=== PATIENT | female | born 1970 | race Caucasian/White ===

== ENCOUNTER 2019-06-19 14:59 | Emergency (ER) | payer OTHER ==
--- NOTE | 2019-06-19 15:10 | PDOC ---
Rapid Medical Evaluation Time Seen by Provider: 06/19/19 15:03 Medical Evaluation: Allergies Allergy/AdvReac Type Severity Reaction Status Date / Time No Known Allergies Allergy Verified 02/15/14 09:31
[2019-06-19 15:37] VITALS: TEMP 98.1; BMI 31.9
[2019-06-19] MEDS ORDERED: SODIUM CHLORIDE 500 ML IV STA (16:06)
[2019-06-19] MEDS ORDERED: METOCLOPRAMIDE HCL INJECTION 10 MG/2 ML VIAL IVPUSH ONE (16:06)
[2019-06-19] MEDS ORDERED: ONDANSETRON 4 MG/2 ML VIAL IVPUSH ONE (16:06)
[2019-06-19] MEDS ORDERED: METOCLOPRAMIDE HCL INJECTION 10 MG/2 ML VIAL ONE (16:19)
[2019-06-19] MEDS ORDERED: ONDANSETRON 4 MG/2 ML VIAL ONE (16:20)
--- NOTE | 2019-06-19 16:24 | PDOC ---
History of Present Illness - General Chief Complaint: Headache Stated Complaint: Weakness Time Seen by Provider: 06/19/19 15:03 History Source: Patient - History of Present Illness Initial Comments: 06/19/19 16:23 48 yo F PMH of hyperlipidemia presents to ED with sudden onset headache x 1 day. pt states she was at work yesterday when she had a sudden frontal headache 10/10 pain. pt never had similar symptoms. shortly prior to onset, pt states she felt very hot and weak and had to sit down. pt states that the pain does not radiate anywhere. pt states that at the moment the pain is 7/10 b/c she took 2 tylenol. pt denies n/v.denies cp, sob. pt states she chronically has LLE swelling. 06/19/19 16:40 Past History - Past Medical History Allergies/Adverse Reactions: Allergies Allergy/AdvReac Type Severity Reaction Status Date / Time No Known Allergies Allergy Verified 02/15/14 09:31 Home Medications: Ambulatory Orders NK [No Known Home Medication] 06/19/19 COPD: No - Psycho Social/Smoking Cessation Hx Smoking History: Never smoked Number of Cigarettes Smoked Daily: 0 Hx Alcohol Use: No Drug/Substance Use Hx: No Review of Systems - Review of Systems Constitutional: No: Chills, Fever *Physical Exam - Vital Signs Last Vital Signs Temp Pulse Resp BP Pulse Ox 98.1 F 99 H 20 124/77 98 06/19/19 15:15 06/19/19 15:15 06/19/19 15:15 06/19/19 15:15 06/19/19 15:15 ED Treatment Course - LABORATORY CBC & Chemistry Diagram: 06/19/19 16:20 06/19/19 16:20 Medical Decision Making - Medical Decision Making 06/19/19 17:25 48 yo F presenting with headache and weakness x 1 day r/o SAH vs migraine vs tension headache -CBC, CMP-- reviewed -preg test neg -CT head -IV tylenol , zofran , ivf 06/19/19 19:06 CT head reviewed, neg -CTA head w/ contrast -IVF
[2019-06-19 16:34] LABS: BASO % 0.9 % (0-2.0); EOS % 4.1 % (0-4.5); HEMOGLOBIN 12.8 GM/dL (10.7-15.3); LYMPH % 16.8 % (8-40); MCH 24.1 pg (25.7-33.7); MCHC 32.7 g/dl (32.0-36.0); MEAN CELL VOLUME 73.8 fl (80-96); MEAN PLT VOLUME 9.5 fl (7.5-11.1); MONO % 5.8 % (3.8-10.2); NEUT % 72.4 % (42.8-82.8); PLATELET COUNT 230 K/MM3 (134-434); RBC 5.29 M/mm3 (3.60-5.2); RDW 15.7 % (11.6-15.6); WHITE BLOOD COUNT 13.2 K/mm3 (4.0-10.0)
[2019-06-19 17:07] LABS: ALBUMIN 3.6 g/dl (3.4-5.0); BILIRUBIN,TOTAL 0.2 mg/dL (0.2-1); BLOOD UREA NITROGEN 17.8 mg/dL (7-18); MAGNESIUM 2.2 mg/dL (1.8-2.4); POTASSIUM 3.9 mmol/L (3.5-5.1); TOT PROT 7.4 g/dl (6.4-8.2)
--- NOTE | 2019-06-19 17:16 | PDOC ---
Attending Attestation - Resident Resident Name: Nickie Hansen - ED Attending Attestation I have performed the following: I have examined & evaluated the patient, The case was reviewed & discussed with the resident, I agree w/resident's findings & plan, Exceptions are as noted - HPI HPI: 06/19/19 17:48 Ms. Hernandez is a 48 yo F who presents to the ER with a complaint of headache Pt awoke with a headache yesterday Her headache continued through out the day and she went to bed with a headache She She describes her headache as frontal, tension, rated initially 05/29 Pt has taken Tylenol provided by a co worker) which has improved her symptoms slightly No nausea, no vomiting No photophobia, no phonopbobia No head trauma No fevers or chills No neck pain or nuchal rigidity No focal weakness or numbness 06/19/19 19:30 06/19/19 19:42 06/19/19 19:43 - Physicial Exam PE: 06/19/19 17:16 GENERAL: The patient is in no acute distress. ENT: Ears normal, nares patent, oropharynx clear without exudates. Moist mucous membranes. NECK: Normal range of motion, supple, no nuchal rigidity LUNGS: Breath sounds equal, clear to auscultation bilaterally. No wheezes, and no crackles. HEART:Regular rate and rhythm, normal S1 and S2 without murmur, rub or gallop. ABDOMEN: Soft, nontender, normoactive bowel sounds. EXTREMITIES: Normal range of motion, no edema. NEUROLOGICAL: Cranial nerves II through XII grossly intact. Normal speech. No focal neurological deficits. SKIN: Warm, Dry, normal turgor, no rashes or lesions noted. 06/19/19 19:46 - Medical Decision Making 06/19/19 17:48 Pt presents with a headache that she has had since waking up yesterday No neurological signs DD: Tension headache, Migraine Headache, IC mass, SAH Laboratory Tests 06/19/19 06/19/19 06/19/19 16:20 16:20 16:20 WBC 13.2 H Hgb 12.8 Hct 39.0 Plt Count 230 PTT (Actin FS) 35.2 BUN 17.8 Creatinine 1.0 Serum , Qual 06/19/19 16:20 WBC Hgb Hct Plt Count PTT (Actin FS) BUN Creatinine Serum , Qual Negative CT Head 06/19/19 19:44 CT head negative Pt headache improving She remains well appearing Kernig and Brudzinski sign negative Will do CTA Will re assess 06/19/19 21:16 CT: No intraparenchymal hemorrhage, no CT evidence of acute subarachnoid hemorrhage. No obvious mass or infarct. Chronic versus subacute sinusitis CTA: No discrete aneurysm is identified, no obvious vascular malformation. The vertebrobasilar and carotid circulation symmetry no CT evidence of large vessel stenosis or occlusion. No extrinsic at [place]. Dural sinuses appear patent 06/19/19 21:17 Upon assessment, patient states her headache has completely resolved. She reports no neck pain. She reports no nuchal rigidity Symptoms seem most consistent with tension headache Patient discharged home Discharge instructions discussed with patient via scientific writer #[id number] I discussed the physical exam findings, ancillary test results and final diagnoses with the patient. I answered all of the patient's questions. The patient was satisfied with the care received and felt comfortable with the discharge plan and treatment plan. The patient will call their primary care physician within 24 hours to arrange follow-up and will return to the Emergency Department with any new, persistant or worsening symptoms. The patient understands that we could not exclude the possibility of an ectopic based on her emergency department workup. She understands that it is extremely important that she sees her physician within 24-48 hours for a repeat visit, including repeat blood work.
[2019-06-19] MEDS ORDERED: ACETAMINOPHEN 1000 MG/100 ML VIAL (NON FORMULARY) IVPB ONE (17:19)
[2019-06-19] MEDS ORDERED: ACETAMINOPHEN INJECTION 100 ML IVPB ONE (18:29)
[2019-06-19] MEDS ORDERED: SODIUM CHLORIDE 1,000 ML IV STA ×2 (19:02→19:44)
--- NOTE | 2019-06-19 19:16 | PDOC ---
*Physical Exam - Vital Signs Last Vital Signs Temp Pulse Resp BP Pulse Ox 98.1 F 99 H 20 124/77 98 06/19/19 15:15 06/19/19 15:15 06/19/19 15:15 06/19/19 15:15 06/19/19 15:15 ED Treatment Course - LABORATORY CBC & Chemistry Diagram: 06/19/19 16:20 06/19/19 16:20 - ADDITIONAL ORDERS Additional order review: Laboratory Results 06/19/19 06/19/19 06/19/19 16:20 16:20 16:20 PTT (Actin FS) 35.2 Sodium 140 Potassium 3.9 Chloride 105 Carbon Dioxide 26 Anion Gap 8 BUN 17.8 Creatinine 1.0 Est GFR (CKD-EPI)AfAm 77.15 Est GFR (CKD-EPI)NonAf 66.57 Random Glucose 95 Calcium 9.0 Phosphorus 3.0 Magnesium 2.2 Total Bilirubin 0.2 AST 16 ALT 24 Alkaline Phosphatase 68 Total Protein 7.4 Albumin 3.6 Serum , Qual Negative 06/19/19 16:20 RBC 5.29 H MCV 73.8 L MCHC 32.7 RDW 15.7 H MPV 9.5 Neutrophils % 72.4 Lymphocytes % 16.8 Monocytes % 5.8 Eosinophils % 4.1 Basophils % 0.9 - Medications Given in the ED: ED Medications Discontinued Medications Generic Name Dose Route Start Last Admin Trade Name Freq PRN Reason Stop Dose Admin Acetaminophen 1,000 mg 06/19/19 17:19 06/19/19 19:13 Ofirmev Injection - IVPB 06/19/19 17:20 1,000 mg ONCE ONE Administration Sodium Chloride 500 mls @ 500 mls/hr 06/19/19 16:06 06/19/19 17:00 Normal Saline - IV 06/19/19 17:05 500 mls/hr ASDIR STA Administration Metoclopramide HCl 10 mg 06/19/19 16:06 06/19/19 17:00 Reglan Injection - IVPUSH 06/19/19 16:07 10 mg ONCE ONE Administration Ondansetron HCl 4 mg 06/19/19 16:06 06/19/19 17:09 Zofran Injection IVPUSH 06/19/19 16:07 4 mg ONCE ONE Administration Medical Decision Making - Medical Decision Making 06/19/19 19:14 rcvd signed out from day team - f/u CTA - dispo pending CTA results 06/19/19 21:00 CTA neg Pt feeling well Discharge - Discharge Information Problems reviewed: Yes Clinical Impression/Diagnosis: Headache Qualifiers: Headache type: unspecified Headache chronicity pattern: unspecified pattern Intractability: not intractable Qualified Code(s): R51 - Headache Condition: Stable Disposition: HOME - Admission No - Additional Discharge Information Prescriptions: Acetaminophen/Caffeine/Butalb [Fioricet -] 1 tablet PO BID PRN #10 tablet MDD 2 PRN Reason: severe headache - Follow up/Referral - Patient Discharge Instructions Patient Printed Discharge Instructions: DI for Headache Additional Instructions: Follow up with your primary care doctor in the next 3-5 days regarding this Emergency Department visit. Follow up with a Neurologist in the next 3-5 days regarding your symptoms. Take Motrin for mild headaches, as directed by the label Take Excedrin for moderate headaches, as directed by the label Take Fioricet for severe headaches; these were sent to your pharmacy ([facility] [id number] Pick them up and take as prescribed. Immediately return to the closest Emergency Department if you experience worsening, new, or concerning symptoms. [place] un seguimiento con odom mdico de atencin primaria en los prximos 3-5 east con respecto a esta visita al Departamento de Emergencias. Jeevan un seguimiento con un neurlogo en los prximos 3-5 east con respecto a alessio sntomas. [place] Motrin para sienna de clari leves, segn las indicaciones de la etiqueta. [place] Excedrin para sienna de clari moderados, roshan lo indica la etiqueta [place] Fioricet para sienna de clari severos; estos fueron enviados a odom farmacia ([facility] [id number] Recjalos y tmelos segn lo prescrito. Regrese de inmediato al departamento de emergencias ms cercano si experimenta un empeoramiento, sntomas nuevos o preocupantes. Print Language: MALTESE - Post Discharge Activity Work/Back to School Note: Back to Work
[2019-06-19] MEDS ORDERED: ACETAMINOPHEN/CAFFEINE/BUTALBITAL 1 TAB PO ONE (19:36)
[2019-06-19] MEDS ORDERED: ACETAMINOPHEN/CAFFEINE/BUTALBITAL 1 TAB ONE (20:00)
[2019-06-19 20:48] VITALS: BP 118/80; PULSE 74
--- NOTE | 2019-06-20 14:36 | EKG ---
Test Reason : Blood Pressure : / mmHG Vent. Rate : 096 BPM Atrial Rate : 096 BPM P-R Int : 150 ms QRS Dur : 078 ms QT Int : 356 ms P-R-T Axes : 055 052 027 degrees QTc Int : 449 ms NORMAL SINUS RHYTHM NO PREVIOUS ECGS AVAILABLE Confirmed by MIKE CRAWFORD MD ([id number]) on 06/20/2019 2:35:44 PM Referred By: Confirmed By:MIKE CRAWFORD MD
== END 2019-06-19 21:37 | disposition home or self-care (01) ==
LOC: JER 14:59
PROC: 3E033NZ Introduction of Analgesics, Hypnotics, Sedatives into Peripheral Vein, Percutaneous Approach (ICD-10-PCS; principal; 2019-06-19)
PROC: 3E033GC Introduction of Other Therapeutic Substance into Peripheral Vein, Percutaneous Approach (ICD-10-PCS; 2019-06-19)
PROC: 3E033GC Introduction of Other Therapeutic Substance into Peripheral Vein, Percutaneous Approach (ICD-10-PCS; 2019-06-19)
DX: R51 Headache (principal); E78.5 Hyperlipidemia, unspecified
CPT/HCPCS: 36415; 70450-TC; 70496-TC; 80053; 83735; 84100; 84703; 85025; 85730; 93005; 93010; 93971-TC; 99283-25; J0131; J7030